=== PATIENT | male | born 1970 | race Caucasian/White ===

== ENCOUNTER 2025-02-18 17:14 | Emergency (ER) | payer MEDICAID ==
[~2025-02-18] VITALS: Ht 170.2 cm; Wt 86.0 kg
[2025-02-18 17:19] VITALS: O2SAT 99
[2025-02-18 20:32] VITALS: TEMP 98.4
[2025-02-18] MEDS: ACETAMINOPHEN 325MG TABLET PO ONE (20:32)
[2025-02-18 21:49] VITALS: BP 138/90; PULSE 87; RESP 16; O2SAT 98
== END 2025-02-18 21:51 | disposition home or self-care (01) ==
LOC: ER 17:14
DX: S09.90XA Unspecified injury of head, initial encounter (principal); I10 Essential (primary) hypertension; E03.9 Hypothyroidism, unspecified; Z98.890 Other specified postprocedural states; Z88.6 Allergy status to analgesic agent; Y04.0XXA Assault by unarmed brawl or fight, initial encounter; Y93.89 Activity, other specified; Y92.89 Other specified places as the place of occurrence of the external cause; Y99.8 Other external cause status
CPT/HCPCS: 99284